=== PATIENT | female | born 2000 | race Two or more races ===

== ENCOUNTER 2024-03-04 09:18 | Emergency (ER) | payer OTHER ==
[~2024-03-04] VITALS: Ht 162.6 cm; Wt 77.3 kg
[2024-03-04 09:26] VITALS: TEMP 98.4
[2024-03-04] MEDS ORDERED: DULO-114 PO (09:28)
[2024-03-04 09:36] LABS: COVID AG,FIA SOURCE NASAL SWAB
[2024-03-04 10:56] LABS: INFLUENZA TYPE A NEGATIVE FOR TYPE A (NEGATIVE); INFLUENZA TYPE B NEGATIVE FOR TYPE B (NEGATIVE)
[2024-03-04] MEDS: CETIRIZINE HCL 10 MG TABLET PO ONE (11:20)
[2024-03-04] MEDS: ACETAMINOPHEN 325 MG TABLET PO ONE (11:20)
[2024-03-04] MEDS: IBUPROFEN 400 MG TABLET PO ONE (11:20)
[2024-03-04 11:29] LABS: SARS-COV2 (COVID) ANTIGEN,FIA Negative (Negative)
[2024-03-04 11:30] VITALS: BP 106/66; PULSE 95; RESP 20; O2SAT 100
[2024-03-04 11:31] LABS: RAPID GROUP A STREP NEGATIVE (NEGATIVE)
== END 2024-03-04 12:27 | disposition home or self-care (01) ==
LOC: EMS 09:21
DX: J06.9 Acute upper respiratory infection, unspecified (principal); B97.89 Other viral agents as the cause of diseases classified elsewhere; Z20.822 Contact with and (suspected) exposure to COVID-19
CPT/HCPCS: 87430; 87804; 99284; Z7502; Z7610